=== PATIENT | male | born 1940 | race Caucasian/White ===

== ENCOUNTER 2025-04-22 11:58 | Emergency (ER) | payer OTHER ==
[2025-04-22 12:47] LABS: BASOPHILS PERCENT AUTO 0.3 % (0.1-1.3); EOSINOPHILS ABSOLUTE AUTO 0.04 K/uL (0.00-0.40); EOSINOPHILS PERCENT AUTO 0.5 % (0.0-5.4); IMMATURE GRAN ABSOLUTE AUTO 0.44 K/uL (0.00-0.23); IMMATURE GRAN PERCENT AUTO 5.6 % (0.0-0.7); LYMPHOCYTES ABSOLUTE AUTO 1.87 K/uL (0.8-3.3); LYMPHOCYTES PERCENT AUTO 24.0 % (11.4-47.7); MONOCYTES ABSOLUTE AUTO 1.04 K/uL (0.20-0.90); MONOCYTES PERCENT AUTO 13.3 % (3.3-12.6); NEUTROPHILS ABSOLUTE AUTO 4.39 K/uL (1.0-7.6); NEUTROPHILS PERCENT AUTO 56.3 % (40.0-78.1); PLATELET COUNT,PLT 125 K/uL (130-375); RED BLOOD CELL COUNT 4.53 M/uL (4.14-5.76); WHITE BLOOD CELL COUNT,WBC 7.8 K/uL (3.2-11.0)
[2025-04-22 13:08] LABS: BASOPHILS ABSOLUTE AUTO 0.02 K/uL (0.00-0.10)
[2025-04-22 13:10] LABS: A/G RATIO 1.5 (1.2-2.2); ALANINE AMINOTRANSFERASE,ALT 23 U/L (12-78); ASPARTATE AMNIOTRANSFERASE,AST 23 U/L (15-37); BILIRUBIN TOTAL 0.9 mg/dL (0.2-1.0); BLOOD UREA NITROGEN,BUN 11 mg/dL (7-18); CARBON DIOXIDE,CO2 22 mmol/L (21-32); CHLORIDE,CL 97 mmol/L (100-108); CREATININE 1.1 mg/dL (0.8-1.3); EST CRCL DRUG DOSING (CG) 44.31 mL/min; ESTIMATED GFR 66 mL/min (>60); GLUCOSE RANDOM 130 mg/dL (74-106); POTASSIUM,K 4.7 mmol/L (3.6-5.2); PROTEIN TOTAL,TP 7.4 g/dL (6.4-8.2); SODIUM,NA 131 mmol/L (140-148)
[2025-04-22] MEDS: diphenhydrAMINE 50 MG/ML SDV IVPUSH ONE (14:28)
[2025-04-22] MEDS: Ketamine 500 MG/5 ML MDV IV ONE (16:11)
== END 2025-04-22 17:59 ==
LOC: JP.ED 11:58
DX: I70.223 Atherosclerosis of native arteries of extremities with rest pain, bilateral legs (principal); I10 Essential (primary) hypertension; J44.9 Chronic obstructive pulmonary disease, unspecified; Z87.891 Personal history of nicotine dependence; Z88.2 Allergy status to sulfonamides; Z91.041 Radiographic dye allergy status; Z79.899 Other long term (current) drug therapy
CPT/HCPCS: 36415; 72131; 80053; 85025; 93925; 96365; 96366; 96375; 96376; 99284; 99291; 99292; J1171; J1200; J1644; J1790

== ENCOUNTER 2025-05-01 12:23 | Inpatient (IN) | payer MEDICARE, OTHER ==
[2025-05-01] MEDS ORDERED: Magnesium Hydroxide 400 MG/5 ML Susp 30 ML Cup PO PRN (13:38)
[2025-05-01] MEDS ORDERED: Sennosides/Docusate Sodium 50-8.6 MG Tab PO PRN (13:38)
[2025-05-01] MEDS ORDERED: Ondansetron 4 MG Tab.DIS PO PRN (13:38)
[2025-05-01] MEDS ORDERED: LIDOCAINE TP PRN (13:58)
[2025-05-01] MEDS: Formoterol/Mometasone 200-5 MCG 8.8 GM Inhaler INH SCH (20:52)
[2025-05-01] MEDS ORDERED: Non-Formulary Medication 1 Each (Fluticasone Propion/Salmeterol [Advair 250-50 Diskus] 1 E PO SCH (21:00)
[2025-05-02] MEDS ORDERED: Non-Formulary Medication 1 Each (Atorvastatin Calcium [Lipitor] 40 MG Tablet) PO SCH (09:00)
[2025-05-02] MEDS: Tiotropium Bromide 4 GM Inhalation Spray (2.5mcg/1 dose; 10 doses) INH SCH (10:33)
[2025-05-02] MEDS: Sennosides/Docusate Sodium 50-8.6 MG Tab PO SCH (11:25)
[2025-05-02] MEDS ORDERED: Dimethicone 20%/Zinc Oxide 25% 56 GM Spray Bottle TOP PRN (11:54)
[2025-05-06] MEDS: guaiFENesin/Dextromethorphan 100-10 MG/5 ML Soln 10 ML Cup PO PRN (04:31)
== END 2025-05-08 13:55 | disposition home or self-care (01) | DRG 948 ==
LOC: JP.MS 12:23
PROVIDERS: ADMIT Internal Medicine; ATTEND Hospitalist
DX: R53.81 Other malaise (principal); I74.5 Embolism and thrombosis of iliac artery; D62 Acute posthemorrhagic anemia; Z66 Do not resuscitate; T82.868D Thrombosis due to vascular prosthetic devices, implants and grafts, subsequent encounter; J44.9 Chronic obstructive pulmonary disease, unspecified; H54.7 Unspecified visual loss; I10 Essential (primary) hypertension; N42.9 Disorder of prostate, unspecified; E78.5 Hyperlipidemia, unspecified; M54.9 Dorsalgia, unspecified; N31.9 Neuromuscular dysfunction of bladder, unspecified; G89.29 Other chronic pain; G62.9 Polyneuropathy, unspecified; Z98.49 Cataract extraction status, unspecified eye; Z88.8 Allergy status to other drugs, medicaments and biological substances; Z88.2 Allergy status to sulfonamides; Z79.899 Other long term (current) drug therapy; Z79.82 Long term (current) use of aspirin; Z98.890 Other specified postprocedural states; Z95.5 Presence of coronary angioplasty implant and graft; Z87.891 Personal history of nicotine dependence
CPT/HCPCS: 71045; 71045-26; 94640; 97110-GP; 97116-GP; 97161-GP; 97166-GO; 97530-GP; 97535-GO; 99306; 99315; A9270-GY